=== PATIENT | female | born 1980 | race Caucasian/White ===

== ENCOUNTER → 2025-01-30 15:35 | Outpatient (REF) | payer OTHER, SELFPAY | LOC: HWWDC 15:35 | PROVIDERS: ATTENDING PHYSICIAN Obstetrics & Gynecology | DX: Z12.31 Encounter for screening mammogram for malignant neoplasm of breast (principal) | CPT/HCPCS: 77063; 77067 ==

== ENCOUNTER 2025-02-03 21:39 | Emergency (ER) | payer OTHER, SELFPAY ==
[2025-02-03 21:42] VITALS: BP 142/87
--- NOTE | 2025-02-03 22:15 | ED.MUSCINJ ---
HPI-Injury
General
Chief Complaint: Musculo-Skeletal Complaint
Source: patient
Exam Limitations: none
Time Seen by Provider: 02/03/25 22:13
Nursing documentation reviewed up to this point in time: agreed with
History of Present Illness-Injury
Initial Injury comments:
44 yo female was riding her child's scooter, fell and injured right hand within past few hours at home.
Denies any other injury
Past History
Past History
ED Past Medical History: None
ED Past Surgical History: None
Social History
Tobacco: Non-smoker
Alcohol: Occasional
Personal:
Living: with family
Employment: Employed
Review of Systems
Review of Systems
Allergies reviewed?: Yes
All Other Systems: ROS reviewed and negative except as documented in HPI and ROS
Musculoskeletal: Reports other (pain right hand)
Phy Exam
Physical Exam
Physical Exam:
PHYSICAL EXAMINATION:
General: no apparent distress, not acutely ill
Neuro: alert and oriented.
Psychiatric: well kept. interactive and cooperative
Musculoskeletal: Moves with ease right hand with mild swelling and ecchymosis over the fourth finger M CP joint full range of motion, distal neurovascular intact.
Skin: Warm, pink.
Injury Course
Orders/Labs/Results
Orders:
Orders
02/03/25 21:43
CR Hand - Right Min 3 Views Urgent
Comment:
Reason For Exam: injury
MDM/Problems Addressed
MDM/Problems Addressed:
44 yo female was riding her child's scooter, fell and injured right hand within past few hours at home.
Denies any other injury
Xray right hand initially read by this examiner: no fracture
Offered monik wrap but pt kindly declined.
*Critical Care Note
Total Time (30-74mins, 75-104mins- exclusive of procedures): Not Applicable
ED Attending Note
-
Portions of this chart may have been created with voice recognition software.� Occasional wrong word or��sound alike� substitutions may have occurred due to the inherent limitations of voice recognition software.
Discharge Plan
Departure
Patient Disposition: Home (Routine Discharge)
Date of Disposition: 02/03/25
Time of Disposition: 22:17
Patient with high blood pressure during this ER visit?: No
Condition: Good
Discharge Problem:
Contusion of right hand
Instructions: Contusion (DC)
Prescriptions:
No Action
CAPSULE Capsule
1 cap PO DAILY
Referrals:
Leonel Cordon MD [Active] - As needed
Activity Restrictions/Additional Instructions:
As we discussed, your x-ray shows nothing is broken.
Tylenol or ibuprofen as needed for pain
Cold compress 15 minutes off and on as needed for swelling
Interventions
Interventions:
*Risk Screen - Suicide Last Done: 02/03/25 22:15
*General Assessment Last Done: 02/03/25 21:42
*Neglect/Abuse Screening Last Done: 02/03/25 22:15
*ED- Fall Risk Assessment Last Done: 02/03/25 22:15
*ED COVID-19 Vaccine History Last Done: 02/03/25 22:15
*Nursing Disposition Last Done: 02/03/25 22:24
ED-Musculoskeletal Assessment Last Done: 02/03/25 22:16
Discharge Date and Time
Discharge Date/Time: 02/03/25 22:25
Print Language: ESTONIAN
== END 2025-02-03 22:25 | disposition home or self-care (01) ==
LOC: EMR 21:39
PROVIDERS: EMERGENCY PHYSICIAN Emergency Medicine
DX: S60.221A Contusion of right hand, initial encounter (principal); V00.141A Fall from scooter (nonmotorized), initial encounter
CPT/HCPCS: 99283; 73130